=== PATIENT | male | born 1995 | race Caucasian/White ===

== ENCOUNTER 2020-02-25 09:04 | Emergency (ER) | payer OTHER ==
[2020-02-25 09:18] VITALS: BP 146/90
--- NOTE | 2020-02-25 09:39 | ED Physician Documentation ---
PD HPI SKIN - Stated complaint Stated Complaint: DOG BITE L CALF - Chief complaint Chief Complaint: Wound - History obtained from History obtained from: Patient - Additional information Additional information: Pt is sent to the emergency department by his workplace, [facility], after sustaining a dog bite to his left calf last night around 2200. Patient states that he was on private property and a small dog came up barking and nipped his legs through his pants. He states he noticed a very tiny break in the skin but no bleeding. The patient has not had any trouble with the wound since it occurred. However, he was told by his workplace that he needed to come and get it checked out and get paperwork filled out, so he is here. No other injuries. No other complaints at this time. Review of Systems Ten Systems: 10 systems reviewed and negative Constitutional: reports: Reviewed and negative Eyes: reports: Reviewed and negative Ears: reports: Reviewed and negative Nose: reports: Reviewed and negative Throat: reports: Reviewed and negative Cardiac: reports: Reviewed and negative Respiratory: reports: Reviewed and negative GI: reports: Reviewed and negative : reports: Reviewed and negative Skin: reports: Abrasion (s), Bite / sting Musculoskeletal: reports: Reviewed and negative Neurologic: reports: Reviewed and negative Psychiatric: reports: Reviewed and negative Endocrine: reports: Reviewed and negative Immunocompromised: reports: Reviewed and negative PD PAST MEDICAL HISTORY - Allergies Allergies/Adverse Reactions: Allergies Allergy/AdvReac Type Severity Reaction Status Date / Time No Known Drug Allergies Allergy Verified 02/25/20 09:17 PD ED PE NORMAL - Vitals Vital signs reviewed: Yes - General General: Alert and oriented X 3, No acute distress - HEENT HEENT: Atraumatic, PERRL, EOMI, Moist mucous membranes - Neck Neck: Supple, no meningeal sign - Respiratory Respiratory: No respiratory distress - Derm Derm: Normal color, Warm and dry, No rash, Other (Tiny, 2 mm abrasion at the base of the patient's left posterior calf, a couple of centimeters above the patient's boot line. No active bleeding. No evidence of a deeper puncture. No erythema or streaking. No edema or induration. Pants are not torn or punctured.) - Extremities Extremities: No deformity, No edema, No calf tenderness / cord - Neuro Neuro: Alert and oriented X 3, Other (Grossly intact) - Psych Psych: Normal mood, Normal affect Results - Vitals Vitals: Vital Signs - 24 hr 02/25/20 09:14 Temperature 36.6 C Heart Rate 94 Respiratory 20 Rate Blood Pressure 146/90 H O2 Saturation 100 Oxygen O2 Source Room air PD MEDICAL DECISION MAKING - ED course Complexity details: considered differential, d/w patient ED course: I discussed with the patient that there is no evidence of wound infection. Given that it is a bite wound if the patient had a deeper puncture, we would consider antibiotics. However, it does not appear that the dog's tooth would have even made contact with the patient's skin, as the pounds, which the patient reports to be the same when he was wearing last night, have not no compromise in the area whatsoever. We have discussed basic wound care and signs of infection, which would be an indication for return. Patient has given us his worker's comp paperwork. Departure - Departure Disposition: 01 Home, Self Care Clinical Impression: Dog bite Qualifiers: Encounter type: initial encounter Qualified Code(s): W54.0XXA - Bitten by dog, initial encounter Condition: Stable Instructions: Bites Scratches Animal Comments: The dog's tooth did not Terrier pants and the wound does not appear infected. The wound is extremely shallow and very minor and the risk of infection is exceedingly low. Please care for the wound is you would care for any other small abrasion. You may go back to work immediately.
== END 2020-02-25 09:51 | disposition home or self-care (01) ==
LOC: ED 09:04
DX: S80.872A Other superficial bite, left lower leg, initial encounter (principal); W54.0XXA Bitten by dog, initial encounter; Y99.0 Civilian activity done for income or pay
CPT/HCPCS: 99281; 99282

== ENCOUNTER 2023-03-25 19:38 | Emergency (ER) | payer BC, OTHER ==
[2023-03-25] MEDS ORDERED: BUFFERED LIDOCAINE 10 ML SYRINGE SUBQ STA (19:44)
[2023-03-25] MEDS ORDERED: TETANUS/DIPHTHERIA/PERTUSSIS 0.5 ML SYRINGE IM ONE (19:44)
--- NOTE | 2023-03-25 19:45 | ED Physician Documentation ---
PD HPI LOWER EXT INJURY - Stated complaint Stated Complaint: RT FOOT LAC - History obtained from History obtained from: Patient (28-year-old gentleman with unknown tetanus status had a glass break and a shard fell on his right foot and he suffered a laceration within the last half hour or so.) PD PAST MEDICAL HISTORY - Past Surgical History Past Surgical History: No - Present Medications Home Medications: Ambulatory Orders Medication Instructions Recorded Confirmed No Known Home Medications 03/25/23 03/25/23 - Allergies Allergies/Adverse Reactions: Allergies Allergy/AdvReac Type Severity Reaction Status Date / Time No Known Drug Allergies Allergy Verified 03/25/23 19:52 - Social History Does the pt smoke?: No Smoking Status: Never smoker PD ED PE NORMAL - Vitals Vital signs reviewed: Yes - General General: Alert and oriented X 3, No acute distress - Extremities Extremities: Other (1 cm laceration on the dorsum of the right foot over the first MTP. Neurovascular status normal in the great toe.) - Neuro Neuro: Alert and oriented X 3, Normal speech Results - Vitals Vitals: Vital Signs - 24 hr 03/25/23 19:46 Temperature 36.4 C L Heart Rate 89 Respiratory 18 Rate Blood Pressure 132/87 H O2 Saturation 96 Oxygen O2 Source Room air Procedures - Laceration (location) Right foot Length in cm: 1 Wound type: Linear, Into subcut fat Neurovascular status: Sensory intact, Motor intact Tendon involvement: Tendon intact Anesthesia: Lidocaine 1%, With bicarb Wound preparation: Irrigated copiously NS Skin layer closure: Nylon, Interrupted, Size #-0 - enter number (4-0), Sutures - enter # (3) Other: Patient tolerated well, No complications, Neurovascular intact, Tetanus booster given Departure - Departure Disposition: 01 Home, Self Care Clinical Impression: Laceration of right foot Qualifiers: Encounter type: initial encounter Qualified Code(s): S91.311A - Laceration without foreign body, right foot, initial encounter Condition: Good Record reviewed to determine appropriate education?: Yes Instructions: ED Laceration Foot Comments: Come back for any signs of infection which would include: Redness, swelling, drainage, increased pain, or fevers. You can wash it soap and water. Keep it covered and moist with bacitracin ointment which is available over the counter; avoid neosporin. Follow-up with your physician in about 14 days for suture removal. Forms: Activity restrictions, PCP List
[2023-03-25] MEDS ORDERED: IBUPROFEN 800 MG TABLET PO STA (19:53)
[2023-03-25 19:57] VITALS: BP 132/87; O2SAT 96
== END 2023-03-25 20:20 | disposition home or self-care (01) ==
LOC: ED 19:38
DX: S91.311A Laceration without foreign body, right foot, initial encounter (principal); W20.8XXA Other cause of strike by thrown, projected or falling object, initial encounter; W25.XXXA Contact with sharp glass, initial encounter; Y92.9 Unspecified place or not applicable
CPT/HCPCS: 12001; 90471; 90715; 99283; A9270

== ENCOUNTER 2023-07-04 08:00 | Outpatient (CLI) | payer BC ==
--- NOTE | 2023-07-04 17:41 | XRAY Report ---
PROCEDURE: Foot 3 View RT INDICATIONS: RIGHT FOOT PAIN TECHNIQUE: 3 views of the foot were acquired. COMPARISON: None. FINDINGS: Bones: No fractures or dislocations. No suspicious bony lesions. Soft tissues: No suspicious soft tissue calcifications or masses. IMPRESSION: No visualized acute fracture or dislocation. However, occult injury cannot be excluded. Recommend zaina rt interval imaging follow-up in 7-10 days as clinically indicated for additional evaluation. Reviewed by: Argelia Valera MD on 07/04/2023 5:39 PM [facility] Approved by: Argelia Valera MD on 07/04/2023 5:39 PM [facility] Station ID: [id number]
== END 2023-07-04 23:59 | disposition home or self-care (01) ==
LOC: DI.WOS 08:00
PROVIDERS: ATTEND Physician Assistant Surgical
DX: M79.671 Pain in right foot (principal)